=== PATIENT | male | born 1955 | race Caucasian/White ===

== ENCOUNTER → 2024-11-24 10:00 | Outpatient (REF) | payer MEDICARE, BC, SELFPAY ==
[2024-11-24 11:36] LABS: Hematocrit 42.4 % (39.0-52.0); Hemoglobin 15.2 g/dL (13.0-18.0); Mean Corp Hgb Conc. 35.8 g/dL (33.0-37.0); Mean Corpuscular Volume 94.9 fL (80.0-94.0); Mean Platelet Volume 10.3 fL (7.4-10.4); Platelet Count 188 10^3/uL (130-400); Red Blood Cell Count 4.47 10^6/uL (4.70-6.10); Red Cell Dist. Width 12.5 % (11.5-14.5)
== END ==
LOC: SDSPAT 10:00
PROVIDERS: ATTENDING PHYSICIAN Otolaryngology; FAMILY PHYSICIAN Family Medicine
DX: Z01.818 Encounter for other preprocedural examination (principal)
CPT/HCPCS: 36415; 85027; 93005

== ENCOUNTER 2024-11-29 06:33 | Day surgery (SDC) | payer MEDICARE, BC, SELFPAY ==
[2024-11-24 14:04] VITALS: BMI 35.1
[2024-11-29] VITALS (8 sets, daily range): BP systolic 129–152; BP diastolic 69–79; BMI 35.1
[2024-11-29] MEDS: TYLENOL 1000 MG PO (10:02)
[2024-11-29] MEDS: NORMOSOL-R/PLASMALYTE-A 1000 IV (10:02)
== END 2024-11-29 14:00 | disposition home or self-care (01) ==
LOC: SDS 06:33
PROVIDERS: ATTENDING PHYSICIAN Otolaryngology
DX: J34.2 Deviated nasal septum (principal); J34.3 Hypertrophy of nasal turbinates; R06.83 Snoring
CPT/HCPCS: 30140; 30520